=== PATIENT | male | born 1940 | race Caucasian/White ===

== ENCOUNTER → 2016-04-19 | Outpatient (CLI) | payer MEDICARE, OTHER ==
[~2016-04-19] MED LIST: ASPIRIN EC81 M1 PO; HYDROCORTISONE20 MG PO; LEVO-T112 MCG PO; METOPROLOL TAR25 MG PO; REVLIMID2.5 MG PO
== END | disposition home or self-care (01) ==
LOC: CLAB 15:21
DX: D64.9 Anemia, unspecified (principal); D60.9 Acquired pure red cell aplasia, unspecified
CPT/HCPCS: 36415; 86850; 86900; 86901; 86923

== ENCOUNTER → 2016-04-20 | Outpatient (CLI) | payer MEDICARE, OTHER | END | disposition home or self-care (01) | LOC: CSSDAY 08:30 | DX: D64.9 Anemia, unspecified (principal); D60.9 Acquired pure red cell aplasia, unspecified | CPT/HCPCS: 36430; J1200; J1940; P9016 ==